=== PATIENT | male | born 1995 | race Caucasian/White ===

== ENCOUNTER 2021-03-27 15:23 | Emergency (ER) | payer BC ==
[~2021-03-27] VITALS: Ht 180.3 cm; Wt 74.8 kg
[2021-03-27 16:01] LABS: BASOPHILS ABSOLUTE AUTO 0.06 K/mm3 (0.00-0.23); BASOPHILS PERCENT AUTO 1 % (0-2); EOSINOPHILS ABSOLUTE AUTO 0.86 K/mm3 (0.00-0.68); EOSINOPHILS PERCENT AUTO 13 % (0-6); Hematocrit 45.7 % (37.0-53.0); IMMATURE GRAN ABSOLUTE AUTO 0.02 K/mm3 (0.00-0.10); IMMATURE GRAN PERCENT AUTO 0 % (0-1); LYMPHOCYTES ABSOLUTE AUTO 1.74 K/mm3 (0.84-5.20); LYMPHOCYTES PERCENT AUTO 26 % (21-46); MONOCYTES ABSOLUTE AUTO 0.57 K/mm3 (0.16-1.47); MONOCYTES PERCENT AUTO 9 % (4-13); Mean Corpuscular HGB 29.9 pg (26.0-34.0); Mean Corpuscular Volume 85 fL (80-100); Mean Platelet Volume 10.8 fL (9.1-12.4); NEUTROPHILS ABSOLUTE AUTO 3.37 K/mm3 (1.96-9.15); NEUTROPHILS PERCENT AUTO 51 % (41-73); Platelet Count 358 K/mm3 (150-400); RDW Coefficient Variation 11.9 % (11.7-14.2); RDW Standard Deviation 36.7 fL (35.1-46.3); Red Blood Cell Count 5.36 M/mm3 (4.30-5.90); White Blood Cell Count 6.62 K/mm3 (4.00-11.30)
[2021-03-27 16:27] LABS: Alanine Aminotransfer (ALT/SGP 35 U/L (12-78); Albumin, Blood 4.2 g/dL (3.4-5.0); Albumin/Globulin Ratio 1.2 (0.8-1.8); Alk Phos 55 U/L (50-136); Anion Gap 2 mmol/L (6-16); Aspartate Aminotrans (AST/SGOT 25 U/L (12-37); Bilirubin, Total 0.6 mg/dL (0.1-1.0); Blood Urea Nitrogen 10 mg/dL (8-24); Bun/Creatinine Ratio 9.9 (12.0-20.0); CO2, Blood 31 mmol/L (21-32); Chloride, Blood 105 mmol/L (98-108); Creatinine, Blood 1.01 mg/dL (0.60-1.20); Globulin, Blood 3.6 g/dL (2.2-4.0); Glomerular Filtration Rate >60 (60-); Glucose, Blood 97 mg/dL (70-99); Sodium, Blood 138 mmol/L (136-145); Total Protein, Blood 7.8 g/dL (6.4-8.2)
== END 2021-03-27 20:27 | disposition home or self-care (01) ==
LOC: ER 15:23
PROVIDERS: Physician Assistant
DX: R42 Dizziness and giddiness (principal); R20.0 Anesthesia of skin
CPT/HCPCS: 80053; 84484; 85025; 93005; 93010; 99284-25